=== PATIENT | male | born 1975 | race Hispanic/Latino ===

== ENCOUNTER 2017-02-04 17:18 | Inpatient (IN) | payer BC ==
[2017-02-04 18:49] LABS: Basophils % (Auto) 0.3 % (0.0-1.8); Eosinophils % (Auto) 2.8 % (0.0-4.3); Hematocrit 46.4 % (35.5-45.6); Hemoglobin 15.8 gm/dl (11.8-15.2); Mean Corpuscular HGB Conc 34 % (32-34); Mean Corpuscular Hemoglobin 30 pg (28-32); Mean Corpuscular Volume 88 fl (84-94); Platelet Count 171 K/mm3 (140-440); Red Blood Count 5.27 M/mm3 (3.65-5.03); Red Cell Distribution Width 13.1 % (13.2-15.2); White Blood Count 8.7 K/mm3 (4.5-11.0)
[2017-02-04 19:03] LABS: Anion Gap 18 mmol/L; BUN/Creatinine Ratio 18.88; Blood Urea Nitrogen 17 mg/dL (9-20); Calcium 9.7 mg/dL (8.4-10.2); Carbon Dioxide 25 mmol/L (22-30); Chloride 90.8 mmol/L (98-107); Glucose 283 mg/dL (75-100); Potassium 4.1 mmol/L (3.6-5.0); Sodium 130 mmol/L (137-145)
[2017-02-04] MEDS ORDERED: NITRO-BID 2% TP ONE (22:51)
[2017-02-04] MEDS ORDERED: MORPHINE IV PRN (22:52)
[2017-02-04] MEDS ORDERED: ZOFRAN IV PRN ×2 (22:52→23:42)
[2017-02-04] MEDS ORDERED: ASPIRIN PO ONE (22:52)
--- NOTE | 2017-02-04 22:57 | Emergency Department Report ---
HPI - General Chief Complaint: Chest Pain Time Seen by Provider: 02/04/17 22:38 - HPI HPI: Room 4 The patient is a 41-year-old male presented with a chief complaint of chest pain. Patient states his symptoms began 2 nights ago after having intercourse with his patient states he developed substernal chest tightness associated with shortness of breath and diaphoresis. Patient states his symptoms resolved over last night while at rest he was again awakened with substernal chest tightness associated shortness of breath. Symptoms resolved again last night. The patient states today he said 4-5 episodes of intermittent substernal chest pain associated shortness of breath and diaphoresis. The patient states his last stress test occurred last year but he has never had a cardiac catheterization. Location: Chest Duration: Intermittent 2 nights Quality: Tightness Severity: Currently 0/10 Modifying factors: [see above] Context: [see above] Mode of transportation: Unknown ED Past Medical Hx - Past Medical History Hx Hypertension: Yes Hx Diabetes: Yes (type 2) - Surgical History Hx Appendectomy: Yes Additional Surgical History: knee repair, right hand, nose - Family History Family history: no significant - Social History Smoking Status: Never Smoker Substance Use Type: None (denies illicit drug use), Alcohol (rarely) - Medications Home Medications: Home Medications Medication Instructions Recorded Confirmed Last Taken Type Lisinopril [Zestril] 25 mg PO QDAY 02/04/17 02/04/17 02/04/17 History ED Review of Systems ROS: Stated complaint: CHEST PAIN/SOB Other details as noted in HPI Comment: All other systems reviewed and negative Constitutional: diaphoresis Eyes: denies: eye pain, eye discharge, vision change ENT: denies: ear pain, throat pain Respiratory: shortness of breath Cardiovascular: chest pain Endocrine: no symptoms reported Gastrointestinal: denies: abdominal pain, nausea, diarrhea Genitourinary: denies: urgency, dysuria Musculoskeletal: denies: back pain, joint swelling, arthralgia Skin: denies: rash, lesions Neurological: denies: headache, weakness, paresthesias Psychiatric: denies: anxiety, depression Hematological/Lymphatic: denies: easy bleeding, easy bruising Physical Exam - Physical Exam Vital Signs: Vital Signs 02/04/17 02/04/17 17:36 22:43 Temperature 98.3 F Pulse Rate 103 H 74 Respiratory 18 19 Rate Blood Pressure 125/85 Blood Pressure 130/81 [Right] O2 Sat by Pulse 96 95 Oximetry Physical Exam: GENERAL: The patient is well-developed well-nourished male lying on stretcher not appearing to be in acute distress. [] HEENT: Normocephalic. Atraumatic. Extraocular motions are intact. Patient has moist mucous membranes. NECK: Supple. Trachea midline CHEST/LUNGS: Clear to auscultation. There is no respiratory distress noted. HEART/CARDIOVASCULAR: Regular. There is no tachycardia. There is no gallop rub or murmur. ABDOMEN: Abdomen is soft, nontender. Patient has normal bowel sounds. There is no abdominal distention. SKIN: There is no rash. There is no edema. There is no diaphoresis. NEURO: The patient is awake, alert, and oriented. The patient is cooperative. The patient has normal speech MUSCULOSKELETAL: There is no evidence of acute injury. ED Course Vital Signs 02/04/17 02/04/17 17:36 22:43 Temperature 98.3 F Pulse Rate 103 H 74 Respiratory 18 19 Rate Blood Pressure 125/85 Blood Pressure 130/81 [Right] O2 Sat by Pulse 96 95 Oximetry ED Medical Decision Making - Lab Data Result diagrams: 02/04/17 18:29 02/04/17 18:29 Laboratory Tests 02/04/17 02/04/17 02/04/17 18:29 18:29 20:50 WBC 8.7 RBC 5.27 H Hgb 15.8 H Hct 46.4 H MCV 88 MCH 30 MCHC 34 RDW 13.1 L Plt Count 171 Lymph % (Auto) 17.5 [place] % (Auto) 6.9 Eos % (Auto) 2.8 Baso % (Auto) 0.3 Lymph # 1.5 [place] # 0.6 Eos # 0.2 Baso # 0.0 Seg Neutrophils % 72.5 H Seg Neutrophils # 6.3 Sodium 130 L Potassium 4.1 Chloride 90.8 L Carbon Dioxide 25 Anion Gap 18 BUN 17 Creatinine 0.9 Estimated GFR > 60 BUN/Creatinine Ratio 18.88 Glucose 283 H Calcium 9.7 Troponin T < 0.010 < 0.010 - EKG Data -: EKG Interpreted by Ok EKG shows normal: sinus rhythm Rate: normal - EKG Data When compared to previous EKG there are: previous EKG unavailable Interpretation: nonspecific ST-T wave julián (T-wave inversion in lead 3) - Radiology Data Radiology results: image reviewed (chest x-ray) interpreted by me: Chest x-ray-focal infiltrates, no pneumothorax - Differential Diagnosis ACS, GERD, pericarditis, pneumonia, pneumothorax Critical care attestation.: If time is entered above; I have spent that time in minutes in the direct care of this critically ill patient, excluding procedure time. ED Disposition Clinical Impression: Chest pain Disposition: DC-09 OP ADMIT IP TO THIS HOSP Is pt being admited?: Yes Does the pt Need Aspirin: Yes Condition: Fair Instructions: Chest Pain (ED) Referrals: PRIMARY CARE, [Primary Care Provider] - 3-5 Days
[2017-02-04] MEDS ORDERED: MILK OF MAGNESIA PO PRN (23:42)
[2017-02-04] MEDS ORDERED: DULCOLAX PR PRN (23:42)
[2017-02-04] MEDS ORDERED: TYLENOL PO PRN (23:42)
--- NOTE | 2017-02-04 23:42 | History and Physical Report ---
History of Present Illness Date of examination: 02/04/17 History of present illness: 41-year-old man with a history of hypertension, diabetes, obesity comes emergency room with complaints of palpitation that started yesterday. These have been intermittent in nature, lasts about 5 seconds, he had 1 episode yesterday and 4 episodes today. Palpitation is associated with chest pain in the left substernal area, shortness of breath. Stated he has a strong family history of coronary artery disease, he has a stress test every year, he is to 4 stress test in March. Admits some nausea,diaphoresis, no vomiting Patient denies cough, abdominal pain, hematochezia, dysuria, frequency, focal weakness, dysarthria, fever chills, polydipsia polyuria, hot or cold intolerance , easy bruisability, or rash or bleeding from mucosal membrane, rhinorrhea, epistaxis, earache, tinnitus, blurry vision, eye discharge, anxiety, depression. Other review of systems negative PAST SURGICAL HISTORY: Knee surgery, hand, nose, ankle SOCIAL HISTORY: Denies alcohol, tobacco, drugs FAMILY HISTORY: Coronary artery disease Medications and Allergies Allergies Allergy/AdvReac Type Severity Reaction Status Date / Time haloperidol [From Haldol] AdvReac Seizure Verified 02/04/17 17:35 haloperidol lactate AdvReac Seizure Verified 02/04/17 17:35 [From Haldol] Home Medications Medication Instructions Recorded Confirmed Last Taken Type Lisinopril [Zestril] 25 mg PO QDAY 02/04/17 02/04/17 02/04/17 History Active Meds: Active Medications Morphine Sulfate (Morphine) 6 mg IV ONCE PRN PRN Reason: Pain Ondansetron HCl (Zofran) 8 mg IV ONCE PRN PRN Reason: Nausea Exam - Physical Exam Narrative exam: Gen. appearance: Patient lying in bed, no apparent distress HEENT: Normocephalic, atraumatic, pupils equally round and reactive to light, extraocular movement intact, and no sclericterus,. No JVD or thyromegaly or nodule,neck supple, no carotid bruit ,mucous membranes moist, no exudate or erythema Heart: S1, S2, regular rate and rhythm Lungs: Clear to auscultation bilaterally, breathing comfortable Abdomen: Positive bowel sounds, nontender, nondistended, no organomegaly Extremity: No edema, cyanosis, clubbing Skin: No rash, nodules, warm, dry Neuro: Oriented 3, cranial nerves II-12 intact, speech is fluent, motor and sensory intact - Constitutional Vitals: Temp Pulse Resp BP Pulse Ox 98.3 F 74 19 130/81 95 02/04/17 17:36 02/04/17 22:43 02/04/17 22:43 02/04/17 22:43 02/04/17 22:43 Results - Labs CBC & Chem 7: 02/04/17 18:29 02/04/17 18:29 Labs: Abnormal lab results 02/04/17 02/04/17 Range/Units 18:29 18:29 RBC 5.27 H (3.65-5.03) M/mm3 Hgb 15.8 H (11.8-15.2) gm/dl Hct 46.4 H (35.5-45.6) % RDW 13.1 L (13.2-15.2) % Seg Neutrophils % 72.5 H (40.0-70.0) % Sodium 130 L (137-145) mmol/L Chloride 90.8 L (98-107) mmol/L Glucose 283 H (75-100) mg/dL - Imaging and Cardiology EKG: image reviewed Chest x-ray: image reviewed Assessment and Plan Palpitations Chest pain Hypertension Diabetes Admit to medicine Check cardiac enzymes, d-dimer, lipid profile and obtain a stress test Consult cardiology Initiate insulin sliding scale, fingersticks Continue outpatient medications, DVT prophylaxis
[2017-02-05 00:54] LABS: Bilirubin,Urine NEG (Negative); Blood,Urine NEG (Negative); Ketones,Urine NEG (Negative); Leukocyte Esterase,Urine NEG (Negative); Nitrite,Urine NEG (Negative); Urobilinogen,Urine < 2.0 mg/dL (<2.0)
[2017-02-05] MEDS: MORPHINE IV PRN ×2 (01:41→05:57)
--- NOTE | 2017-02-05 07:19 | Consultation ---
History of Present Illness Consult date: 02/05/17 Consult reason: other (palpitations) History of present illness: 41-year-old man with a history of hypertension, diabetes, obesity comes emergency room with complaints of palpitations that started yesterday. These have been intermittent in nature, lasts about 5 seconds. Palpitations are associated with chest pain in the left substernal area, shortness of breath. Patient denies orthopnea, pnd, dizziness or syncope. Past History Past Medical History: diabetes, hypertension Past Surgical History: Other (knee and ankle surgery) Social history: denies: smoking, alcohol abuse, prescription drug abuse, IV drug use Family history: CAD Medications and Allergies Allergies Allergy/AdvReac Type Severity Reaction Status Date / Time haloperidol [From Haldol] AdvReac Seizure Verified 02/04/17 17:35 haloperidol lactate AdvReac Seizure Verified 02/04/17 17:35 [From Haldol] Home Medications Medication Instructions Recorded Confirmed Last Taken Type Lisinopril [Zestril] 25 mg PO QDAY 02/04/17 02/04/17 02/04/17 History Active Meds: Active Medications Acetaminophen (Tylenol) 650 mg PO Q4H PRN PRN Reason: Pain MILD(1-3)/Fever >100.5/GRAF Aspirin (Aspirin) 325 mg PO QDAY HUSAM Bisacodyl (Dulcolax) 10 mg VA QDAY PRN PRN Reason: Constipation unrelieved by MOM Enoxaparin Sodium (Lovenox) 40 mg SUB-Q QDAY@1000 HUSAM Magnesium Hydroxide (Milk Of Magnesia) 30 ml PO Q4H PRN PRN Reason: Constipation Morphine Sulfate (Morphine) 2 mg IV Q4H PRN PRN Reason: Pain, Moderate (4-6) Last Admin: 02/05/17 05:57 Dose: 2 mg Ondansetron HCl (Zofran) 4 mg IV Q8H PRN PRN Reason: N/V unrelieved by Reglan Review of Systems All systems: negative (pertinent positives in HPI) Physical Examination Vital Signs Temp Pulse Resp BP Pulse Ox 98.3 F 103 H 18 125/85 96 02/04/17 17:36 02/04/17 17:36 02/04/17 17:36 02/04/17 17:36 02/04/17 17:36 General appearance: no acute distress HEENT: Positive: PERRL, EOMI Neck: Positive: neck supple Cardiac: Positive: Reg Rate and Rhythm, S1/S2 Lungs: Positive: clear to auscultation Neuro: Positive: Grossly Intact Abdomen: Positive: Unremarkable, Soft Extremities: Present: normal Results 02/05/17 07:20 02/05/17 07:20 Assessment and Plan Palpitations Chest pain Hypertension Diabetes EKG shows normal sinus rhythm Telemetry shows normal sinus rhythm TSH and FT4 stress test and echo today
[2017-02-05 07:35] LABS: Basophils % (Auto) 0.6 % (0.0-1.8); Eosinophils % (Auto) 3.1 % (0.0-4.3); Hematocrit 45.2 % (35.5-45.6); Hemoglobin 15.3 gm/dl (11.8-15.2); Mean Corpuscular HGB Conc 34 % (32-34); Mean Corpuscular Hemoglobin 30 pg (28-32); Mean Corpuscular Volume 88 fl (84-94); Platelet Count 158 K/mm3 (140-440); Red Blood Count 5.12 M/mm3 (3.65-5.03); Red Cell Distribution Width 13.2 % (13.2-15.2); White Blood Count 7.9 K/mm3 (4.5-11.0)
[2017-02-05] MEDS ORDERED: LEXISCAN IV ONE ×2 (07:53→08:11)
[2017-02-05 08:35] LABS: Anion Gap 18 mmol/L; Blood Urea Nitrogen 18 mg/dL (9-20); Calcium 9.1 mg/dL (8.4-10.2); Carbon Dioxide 26 mmol/L (22-30); Chloride 93.6 mmol/L (98-107); Glucose 230 mg/dL (75-100); Potassium 4.7 mmol/L (3.6-5.0); Sodium 133 mmol/L (137-145)
[2017-02-05 08:37] LABS: Creatine Kinase MB 1.8 ng/mL (0.0-4.0)
--- NOTE | 2017-02-05 08:45 | Event Note ---
Date: 02/05/17 Patient is a [facility] patient. [facility] has been notified and will take over care.
[2017-02-05] MEDS ORDERED: ASPIRIN PO SCH (10:00)
[2017-02-05] MEDS ORDERED: LOVENOX SUB-Q SCH ×2 (10:00)
--- NOTE | 2017-02-05 10:13 | XRay Report ---
AP CHEST : 02/04/17 17:18:00 CLINICAL: Chest pain. COMPARISON:None FINDINGS: Normal heart and pulmonary vessels. The lungs are clear except for a few scattered tiny granulomata in both lungs. No pulmonary consolidation. No pleural effusion. The bones and soft tissues are unremarkable. IMPRESSION: Old granulomatous disease. No acute cardiopulmonary process.
[2017-02-05 12:14] VITALS: BP 116/62
--- NOTE | 2017-02-05 12:29 | Discharge Summary ---
Providers - Providers Date of Admission: 02/04/17 23:42 Date of discharge: 02/05/17 Attending physician: JERMAIN HERNANDEZ Primary care physician: [employer] Hospitalization Condition: Stable Hospital course: Patient is 41-year-old man with history as dependent about diabetes mellitus out of insulin for 4 months, hypertension and obesity BMI 35 but he has lost quite a bit of weight due to change in diet and better lifestyle who presents with palpitations and chest pain. He was found have uncontrolled blood sugar of 288. There were no alarms on telemetry monitoring -Chest pain, costochondritis: Stress test negative discussed with Dr. Phoebe Landa -Uncontrolled diabetes mellitus with hyperglycemia: [employer] compliance -Hyponatremia due to hyperglycemia -Hypertension Disposition: DC-01 TO HOME OR SELFCARE Time spent for discharge: 34 minutes Core Measure Documentation - Palliative Care Palliative Care/ Comfort Measures: Not Applicable - Core Measures Any of the following diagnoses?: DVT/PE, none - VTE Discharge Requirements Deep Vein Thrombosis/Pulmonary Embolism Present on Admission: No Has pt received <5 days of overlap therapy or INR<2.0: No Anticoagulant overlap therapy prescribed at discharge: No Contraindication No Overlap Therapy order at DC: Not Indicated Exam - Physical Exam Narrative exam: GEN: WDWN, NAD, AWAKE, ALERT, ORIENTATED x 3 HEENT: NCAT, PERRL, EOMI, OP CLEAR NECK: SUPPLE, NO THYROMEGALY, NO JVD, NO LAD CVS: RRR, NORMAL S1S2 LUNGS/CHEST: CTA B, NORMAL CHEST EXPANSION B, GOOD AIR ENTRY B ABD: SOFT, NTND, GBS, NO REBOUND OR GUARDING EXT/SKIN: NO SIGNIFICANT EDEMA OR RASH MSK: FROM X 4 EXTREMITIES NEURO: CN 2-12 GROSSLY INTACT, NO FOCAL DEFICITS PSY: CALM - Constitutional Vitals: Temp Pulse Resp BP Pulse Ox 98.0 F 84 18 116/62 98 02/05/17 12:12 02/05/17 12:12 02/05/17 12:12 02/05/17 12:12 02/05/17 12:12 Plan Activity: other (no strenous activites until cleared by PCP. ) Diet: low salt, diabetic Special Instructions: record daily BP diary, record blood sugar diary Follow up with: PRIMARY CARE, [Primary Care Provider] - 3-5 Days Prescriptions: Insulin Aspart [NovoLOG Flexpen] 1 dose SQ AC #1 pen
== END 2017-02-05 14:37 | disposition home or self-care (01) | DRG 206 ==
LOC: ED 17:18 → 4A 23:42
PROVIDERS: ADMIT Internal Medicine; ATTEND Internal Medicine
DX: M94.0 Chondrocostal junction syndrome [Tietze] (principal); E87.1 Hypo-osmolality and hyponatremia; R00.2 Palpitations; E11.65 Type 2 diabetes mellitus with hyperglycemia; Z88.8 Allergy status to other drugs, medicaments and biological substances; E66.9 Obesity, unspecified; Z68.35 Body mass index [BMI] 35.0-35.9, adult; Z82.49 Family history of ischemic heart disease and other diseases of the circulatory system; Z90.49 Acquired absence of other specified parts of digestive tract
CPT/HCPCS: 36415; 71010; 78452; 80048; 81001; 82550; 82553; 84439; 84443; 84484; 85025; 85379; 93005; 93010; 93017; 93306; A9502; J1650; J2270; J2785